=== PATIENT | male | born 1975 | race Caucasian/White ===

== ENCOUNTER 2017-02-28 09:09 | Emergency (ER) | payer BC ==
[2017-02-28 10:07] LABS: microscopic required? NO
[2017-02-28 10:19] LABS: BASOPHIL % 0.5 % (0-2); PLATELET COUNT 286 x10^3mcL (130-400); RED CELL DISTRIBUTION WIDTH 13.2 % (11.5-14.5)
[2017-02-28 10:24] LABS: urine erythrocyte NEGATIVE (NEGATIVE)
[2017-02-28 10:26] LABS: CALCIUM 8.9 mg/dL (8.5-10.1); CARBON DIOXIDE 26.4 mmol/L (21-32); CHLORIDE SERUM 104 mmol/L (98-107); CREATININE SERUM 0.8 mg/dL (0.7-1.3); GFR1 > 60 mL/min; GLUCOSE SERUM 99 mg/dL (74-106); POTASSIUM SERUM 4.1 mmol/L (3.5-5.1); SODIUM SERUM 138 mmol/L (136-145)
[2017-02-28 10:32] LABS: ALBUMIN 4.3 g/dL (3.4-5.0); ALKALINE PHOSPHATASE 90 U/L (46-116); ALT/SGPT 42 U/L (16-63); AST/SGOT 23 U/L (15-37); BILIRUBIN TOTAL 0.49 mg/dL (0.20-1.00); LIPASE 161 IU/L (73-393)
[2017-02-28 10:35] LABS: TOTAL PROTEIN, SERUM 8.4 g/dL (6.4-8.2)
[2017-02-28 12:01] VITALS: BP 118/74
== END 2017-02-28 12:17 | disposition home or self-care (01) ==
LOC: ED 09:09
PROVIDERS: Emergency Medicine
DX: S22.31XA Fracture of one rib, right side, initial encounter for closed fracture (principal); X58.XXXA Exposure to other specified factors, initial encounter; Y93.89 Activity, other specified; Y99.8 Other external cause status; Y92.89 Other specified places as the place of occurrence of the external cause
CPT/HCPCS: 36415